=== PATIENT | male | born 1965 | race Caucasian/White ===

== ENCOUNTER 2021-12-11 07:18 | Day surgery (SDC) | payer MEDICAID ==
[~2021-12-11] VITALS: Ht 175.3 cm; Wt 82.6 kg
[2021-12-11] MEDS: fentaNYL CITRATE/PF 100 MCG/2 ML AMP ONE ×3 (09:04→09:08)
[2021-12-11] MEDS: MIDAZOLAM HCL 5 MG/5 ML VIAL ONE ×3 (09:04→09:09)
[2021-12-11 11:56] VITALS: BP_SYST 140
== END 2021-12-11 10:00 | disposition home or self-care (01) ==
LOC: SDS 07:18 → SMU 07:19 → SDS 10:00
PROVIDERS: ATTEND Internal Medicine
DX: Z12.11 Encounter for screening for malignant neoplasm of colon (principal); K57.30 Diverticulosis of large intestine without perforation or abscess without bleeding; I10 Essential (primary) hypertension; E78.5 Hyperlipidemia, unspecified; Z20.822 Contact with and (suspected) exposure to COVID-19
CPT/HCPCS: 36415; 45378; 87426; 99152; G0378; J2250; J3010